=== PATIENT | male | born 1940 | race Hispanic/Latino ===

== ENCOUNTER 2024-12-17 14:24 | Emergency (ER) | payer MEDICARE ==
[~2024-12-17] VITALS: Ht 167.6 cm; Wt 86.2 kg
[2024-12-17 14:45] VITALS: TEMP 98.2
[2024-12-17] MEDS ORDERED: SODIUM CHLORIDE FLUSH 10 ML SYR IV PRN (15:15)
[2024-12-17 15:29] LABS: BASOPHILS % 0.3 % (0.0-1.0); EOSINOPHILS # (AUTO) 0.1 (0.0-0.4); EOSINOPHILS % 1.6 % (0.0-6.0); HEMATOCRIT 45.5 % (34.2-44.1); HEMOGLOBIN 14.3 g/dL (12.0-16.0); LYMPHOCYTES # (AUTO) 1.6 (1.0-3.2); LYMPHOCYTES % 23.2 % (18.0-39.1); MEAN CORPUSCULAR HEMOGLOBIN 29.8 pg (28-32); MEAN CORPUSCULAR HGB CONC 31.4 g/dL (31-35); MEAN CORPUSCULAR VOLUME 94.8 fL (81-99); MONOCYTES # (AUTO) 0.5 (0.2-0.8); MONOCYTES % 7.3 % (4.4-11.3); NEUTROPHILS # (AUTO) 4.7 (2.1-6.9); NEUTROPHILS % 67.2 % (38.7-80.0); PLATELET COUNT 237 x10e3/uL (140-360); WHITE BLOOD COUNT 6.97 x10e3/uL (4.8-10.8)
[2024-12-17 15:55] LABS: ALBUMIN 3.8 g/dL (3.5-5.0); ALBUMIN/GLOBULIN RATIO 1.3 (0.8-2.0); ANION GAP 16.6 mmol/L (8-16); BILIRUBIN,TOTAL 0.7 mg/dL (0.2-1.2); CALCIUM 10.2 mg/dL (8.4-10.2); CREATININE, SERUM 0.92 mg/dL (0.57-1.11); POTASSIUM 3.6 mmol/L (3.5-5.1); TOTAL PROTEIN 6.8 g/dL (6.5-8.1)
[2024-12-17 16:01] LABS: TROPONIN I 0.006 ng/mL (0-0.300)
[2024-12-17 19:08] VITALS: PULSE 58; RESP 16; O2SAT 96
[2024-12-17] MEDS ORDERED: LEVETIRACETAM 500 MG/5 ML VIAL IV ONE (19:10)
[2024-12-17] MEDS ORDERED: SODIUM CHLORIDE 0.9% 0 ML ONE (19:11)
[2024-12-17] MEDS: DEXAMETHASONE SOD PHOS 10 MG/1 ML VIAL IV ONE (19:22)
[2024-12-17] MEDS: LEVETIRACETAM 1500 MG/100 ML 100 ML IV ONE (19:23)
== END 2024-12-17 19:28 | disposition other institution (70) ==
LOC: EDSEX 14:24 → ER 15:43
DX: R53.1 Weakness (principal); I62.9 Nontraumatic intracranial hemorrhage, unspecified; R91.8 Other nonspecific abnormal finding of lung field; R20.0 Anesthesia of skin
CPT/HCPCS: 36415; 70450; 71045; 72125; 72128; 72131; 80053; 83690; 84484; 85025; 94760; 99284; J1100; 93005; J7050